=== PATIENT | female | born 1950 | race Caucasian/White ===

== ENCOUNTER → 2019-02-13 | Outpatient (CLI) | payer OTHER ==
[~2019-02-13] MED LIST: SYNTHROID88 MCG PO
== END ==
LOC: M.RAD 10:51
DX: R05 Cough (principal)

== ENCOUNTER 2021-01-10 12:33 | Emergency (ER) | payer OTHER ==
[~2021-01-10] VITALS: Ht 167.6 cm; Wt 80.7 kg
[2021-01-10] MEDS ORDERED: METOPROLOL SUCC25 M1 PO (12:42)
[2021-01-10] MEDS ORDERED: VITAMIN B-125000 MCG SUBLING (12:43)
[2021-01-10] MEDS ORDERED: VITAMIN D3250 MCG PO (12:43)
[2021-01-10 12:59] LABS: ABSOLUTE BASOPHILS 0.1 thou/uL (0.0-0.2); ABSOLUTE EOSINOPHILS 0.2 thou/uL (0.0-0.7); ABSOLUTE LYMPHOCYTES 2.3 thou/uL (0.8-5.3); ABSOLUTE MONOCYTES 0.6 thou/uL (0.0-1.2); ABSOLUTE NEUTROPHILS 3.8 thou/uL (1.6-8.1); BASOPHILS 1.3 %; EOSINOPHILS 2.2 %; HEMATOCRIT 40.6 % (37.0-47.0); HEMOGLOBIN 13.6 gm/dL (12.0-15.0); MCHC 33.6 g/dL (28.0-37.0); MCV 92.4 fL (80.0-100.0); MONOCYTES 8.6 %; MPV 7.9 fl. (7.2-11.1); NUCLEATED RBCS 0 /100WBC; PLATELET COUNT* 281 thou/uL (150-400); POLYS 54.9 %; RDW-CV 13.3 % (10.5-14.5); WBC 6.9 thou/uL (4.0-11.0)
[2021-01-10 13:06] LABS: CALCIUM 8.7 mg/dL (8.5-10.1); CREATININE 1.1 mg/dL (0.6-1.3); POTASSIUM 4.1 mmol/L (3.5-5.1)
[2021-01-10 13:09] LABS: APTT 24.2 Seconds (25.0-31.3); PROTIME 10.3 Seconds (9.20-11.50)
[2021-01-10 13:18] LABS: ALBUMIN 3.7 g/dL (3.4-5.0); CK-MB MASS 0.6 ng/mL (<0.5-3.6); MAGNESIUM 2.4 mg/dL (1.8-2.4); TOTAL PROTEIN 7.6 g/dL (6.4-8.2)
--- NOTE | 2021-01-10 15:11 | EKG ---
[place] [address] ELECTROCARDIOGRAM REPORT Name: MERI PRIETO Hussein Room: [facility]#: [id number] Admission: 01/10/21 Attend Phys: Discharge: Date of : 50 Date of Service: 01/10/21 1238 Report #: [id number] THIS REPORT FOR: //name// [facility] ED Test Date: 2021-01-10 Test Time: 12:38:50 Pat Name: MERI PRIETO Department: Room: Gender: F [employer] Operator: : 1950 Requested By: Michele Langley Order Number: [id number] MD: Todd You Measurements Intervals [place] Rate: 71 P: 45 [place]: 151 QRS: 58 QRSD: 92 T: 62 QT: 413 QTc: 449 Interpretive Statements Sinus rhythm Baseline wander in lead(s) V1 Compared to ECG 07/28/2015 18:54:16 No significant changes Electronically Signed On 01-10-2021 15:11:15 CDT by Todd You [email or web address] <ELECTRONICALLY SIGNED> By: Todd You MD, [facility] 01/10/21 1511 1238 1238 Todd You MD, [facility] /EPI
--- NOTE | 2021-01-10 15:50 | EXE ---
[place] [address] STRESS ECHOCARDIOGRAM Name: MERI PRIETO Room: [facility]#: [id number] Admission: 01/10/21 Attend Phys: Discharge: Date of : 50 Date of Service: 01/10/21 1550 Report #: [id number] THIS REPORT FOR: cc: Alberto Martínez MD, Meng MD Blick, David R. MD [facility] ~ APPROVED REPORT Study performed: 01/10/2021 15:05:15 Exam: Stress Echocardiogram Indication: Chest pain Patient Location: ER Stress Nurse: Dulce Barrera RN Supervising Physician: Todd You MD Status: routine Ht: 5 ft 6 in HR: 72 bpm BP: 145/94 mmHg Rhythm: NSR Medical History Allergies: No known drug allergies Cardiac Risk Factors: HTN Procedure The patient underwent an Exercise Stress Test using the [place] Protocol. Blood pressure, heart rate, and EKG were monitored. An Echocardiogram was performed by library circulation technician in four stages in quad fashion. At peak stress, four selected images were obtained and placed side by side with resting images for comparison. Stress Test Details Stress Test: Exercise stress testing was performed using a [place] protocol. HR Resting HR: 72 bpm Max Heart Rate (APMHR): 150 bpm Max HR Achieved: 135 bpm Target HR (85% APMHR): 127 bpm % of APMHR: 90 Recovery HR: 76 bpm HR response to stress: Normal HR response to stress BP Resting BP: 145/94 [place] [address] STRESS ECHOCARDIOGRAM Name: IDA,MERI Hussein Room: [facility]#: [id number] Admission: 01/10/21 Attend Phys: Discharge: Date of : 50 Date of Service: 01/10/21 1550 Report #: [id number] Max BP: 208/103 mmHg Recovery BP: 174/101 mmHg BP response to stress: Normal blood pressure response to stress. ECG Resting ECG: Sinus Rhythm Stress ECG: Sinus Tachycardia ST Change: None Maximum ST Deviation: 0 mm Arrhythmia: None Recovery ECG: Sinus Rhythm Recovery ST Change: None Recovery ST Deviation: 0 mm Recovery Arrhythmia: None Clinical Reason for Termination: Maximal effort Exercise duration: 4 min 13 sec Highest Stage Achieved: Stage 2: 2.5 mph at 12% grade. Exercise capacity: 5.84 METs Pre-Stress Echo The resting Echocardiogram showed normal left ventricular contractility with an estimated Ejection Fraction of about 55-60%. Post-Stress Echo The stress Echocardiogram showed normal left ventricular contractility with an estimated Ejection Fraction of about 65-70%. Compared to rest, there were no stress-induced wall motion abnormalities. Conclusion Clinical Response: Non-ischemic Exercise Capacity: Below Average Stress ECG Response: Non-ischemic Stress Echo Images: Non-ischemic low risk stress echo for predicting future cardiac events Other Information Study Quality: Good [address] [place] [address] STRESS ECHOCARDIOGRAM Name: IDAMERI K Room: [facility]#: [id number] Admission: 01/10/21 Attend Phys: Discharge: Date of : 50 Date of Service: 01/10/211549 Report #: [id number] <Conclusion> low risk stress echo for predicting future cardiac events <ELECTRONICALLY SIGNED> By: Todd You MD, FACC 01/10/211549 49 49 Todd You MD, FACC /INF
[2021-01-10 15:59] VITALS: BP 150/99
== END 2021-01-10 16:00 | disposition home or self-care (01) ==
LOC: M.ERS 12:33
PROVIDERS: Family Medicine
DX: R07.89 Other chest pain (principal); I10 Essential (primary) hypertension; Z85.41 Personal history of malignant neoplasm of cervix uteri; E89.0 Postprocedural hypothyroidism